=== PATIENT | male | born 1995 | race Hispanic/Latino ===

== ENCOUNTER 2022-09-07 00:37 | Inpatient (IN) | payer OTHER ==
[~2022-09-07] VITALS: Ht 167.6 cm; Wt 61.0 kg
[2022-09-07] VITALS (7 sets, daily range): BP systolic 127–143; BP diastolic 66–81; PULSE 80–95; RESP 17–20; TEMP 97.8–98.6; O2SAT 89–100
[2022-09-07] MEDS ORDERED: ALBUTEROL/IPRATROPIUM 3 ML NEB NEB STA (00:41)
[2022-09-07] MEDS ORDERED: METHYLPREDNISOLONE SOD SUCC 125 MG/2ML VIAL IV STA (00:41)
[2022-09-07] MEDS ORDERED: PREDNISONE 20 MG TAB PO STA (00:48)
[2022-09-07 00:54] LABS: BASOPHILS % 0.1 % (0.0-1.0); EOSINOPHILS % 0.2 % (0.0-6.0); HEMATOCRIT 41.8 % (38.2-49.6); HEMOGLOBIN 15.2 g/dL (14.0-18.0); LYMPHOCYTES # (AUTO) 2.4 (1.0-3.2); LYMPHOCYTES % 24.4 % (18.0-39.1); MEAN CORPUSCULAR HEMOGLOBIN 30.6 pg (28-32); MEAN CORPUSCULAR HGB CONC 36.4 g/dL (31-35); MEAN CORPUSCULAR VOLUME 84.3 fL (81-99); MONOCYTES # (AUTO) 0.6 (0.2-0.8); MONOCYTES % 6.1 % (4.4-11.3); NEUTROPHILS # (AUTO) 6.8 (2.1-6.9); PLATELET COUNT 239 x10e3/uL (140-360); RED BLOOD COUNT 4.96 x10e6/uL (4.3-5.7); RED CELL DISTRIBUTION WIDTH 11.8 % (11.7-14.4)
[2022-09-07 01:16] LABS: ALANINE AMINOTRANSFERASE 63 IU/L (0-55); ALBUMIN 4.3 g/dL (3.5-5.0); ALBUMIN/GLOBULIN RATIO 1.1 (0.8-2.0); ALKALINE PHOSPHATASE 67 IU/L (40-150); ANION GAP 18.7 mmol/L (8-16); BLOOD UREA NITROGEN 13 mg/dL (7-26); BUN/CREATININE RATIO 13 (6-25); CALCIUM 9.5 mg/dL (8.4-10.2); CARBON DIOXIDE 19 mmol/L (22-29); CHLORIDE 104 mmol/L (98-107); CREATINE KINASE 164 IU/L (30-200); CREATININE, SERUM 0.99 mg/dL (0.72-1.25); GLUCOSE 110 mg/dL (74-118); POTASSIUM 3.7 mmol/L (3.5-5.1); SODIUM 138 mmol/L (136-145)
[2022-09-07 01:25] LABS: ABG PCO2 22 mmHg (35-45); ABG PH 7.58 (7.35-7.45); ABG PO2 46 mmHg (80-105)
[2022-09-07 01:26] LABS: ABG HCO3 20 mmol/L (22-26); ABG TCO2 21
[2022-09-07] MEDS ORDERED: IOPAMIDOL 370 MG/ML 100 ML INFUS..BTL INJ ONE (02:26)
[2022-09-07] MEDS: SODIUM CHLORIDE 0.9% 1000ML 1,000 ML IV SCH ×3 (02:27→17:38)
[2022-09-07 02:59] LABS: ABG PCO2 35 mmHg (35-45); ABG PH 7.44 (7.35-7.45); ABG PO2 169 mmHg (80-105)
[2022-09-07 03:00] LABS: ABG HCO3 24 mmol/L (22-26); ABG TCO2 25
[2022-09-07] MEDS ORDERED: DOCUSATE SODIUM 100 MG CAP PO PRN (05:00)
[2022-09-07] MEDS ORDERED: ALBUTEROL SULF 0.083% NEB SOLN 3 ML NEB NEB PRN (05:00)
[2022-09-07] MEDS ORDERED: ACETAMINOPHEN 325 MG TAB PO PRN (05:00)
[2022-09-07] MEDS ORDERED: GUAIFENESIN/DEXTROMETHORPHAN LIQD 5 ML UDC PO PRN (05:00)
[2022-09-07] MEDS ORDERED: MAGNESIUM/ALUMINUM/SIMETHICONE 30 ML UDC PO PRN (05:00)
[2022-09-07] MEDS ORDERED: MELATONIN 3 MG TAB PO PRN (05:00)
[2022-09-07] MEDS ORDERED: ONDANSETRON HCL INJ 2MG/ML 2ML 2 MG/ML VIAL IV PRN (05:00)
[2022-09-07] MEDS ORDERED: HYDRALAZINE HCL 20 MG/ML VIAL IV PRN (05:00)
[2022-09-07 07:55] LABS: AMPHETAMINES SCREEN,URINE NEGATIVE (NEGATIVE); BENZODIAZEPINES SCREEN,URINE NEGATIVE (NEGATIVE); PHENCYCLIDINE SCREEN,URINE NEGATIVE (NEGATIVE)
[2022-09-07 10:19] LABS: CREATINE KINASE 139 IU/L (30-200)
[2022-09-07 10:41] LABS: MAGNESIUM 1.7 MG/DL (1.3-2.1)
[2022-09-07] MEDS: MULTIVITAMINS/MINERALS TAB PO SCH (10:54)
[2022-09-07 11:34] LABS: FREE THYROXINE INDEX 1.9094 (1.4-3.8); THYROID STIMULATING HORMONE 0.263 uIU/mL (0.350-4.940)
[2022-09-07 19:45] LABS: CREATINE KINASE 134 IU/L (30-200)
[2022-09-08] VITALS (9 sets, daily range): BP systolic 108–133; BP diastolic 61–85; PULSE 64–81; RESP 16–20; TEMP 97.5–98.2; O2SAT 100
[2022-09-08] MEDS: SODIUM CHLORIDE 0.9% 1000ML 1,000 ML IV SCH ×3 (05:07→21:21)
[2022-09-08 06:13] LABS: BASOPHILS % 0.1 % (0.0-1.0); EOSINOPHILS % 0.2 % (0.0-6.0); HEMATOCRIT 38.1 % (38.2-49.6); HEMOGLOBIN 13.3 g/dL (14.0-18.0); LYMPHOCYTES # (AUTO) 3.1 (1.0-3.2); MEAN CORPUSCULAR HEMOGLOBIN 30.7 pg (28-32); MEAN CORPUSCULAR HGB CONC 34.9 g/dL (31-35); MONOCYTES # (AUTO) 0.7 (0.2-0.8); MONOCYTES % 6.4 % (4.4-11.3); NEUTROPHILS # (AUTO) 7.2 (2.1-6.9); NEUTROPHILS % 64.9 % (38.7-80.0); PLATELET COUNT 205 x10e3/uL (140-360); RED BLOOD COUNT 4.33 x10e6/uL (4.3-5.7); RED CELL DISTRIBUTION WIDTH 12.4 % (11.7-14.4)
[2022-09-08 06:35] LABS: ALBUMIN 3.4 g/dL (3.5-5.0); ALBUMIN/GLOBULIN RATIO 1.1 (0.8-2.0); CALCIUM 8.4 mg/dL (8.4-10.2); CREATININE, SERUM 0.84 mg/dL (0.72-1.25)
[2022-09-08] MEDS: MULTIVITAMINS/MINERALS TAB PO SCH (09:55)
[2022-09-08] MEDS ORDERED: ONDANSETRON HCL 4 MG ORAL DISINTEGRATING TAB PO PRN (13:45)
[2022-09-09] VITALS: BP 125/66; PULSE 78; RESP 18; TEMP 98.2; O2SAT 100
[2022-09-09] MEDS: SODIUM CHLORIDE 0.9% 1000ML 1,000 ML IV SCH ×2 (01:30→05:29)
[2022-09-09 04:00] VITALS: BP 112/72; PULSE 69; RESP 18; TEMP 98.1; O2SAT 99
[2022-09-09 06:32] VITALS: PULSE 75; RESP 20; O2SAT 97
[2022-09-09] MEDS ORDERED: PROVENTIL HFA6.7 GM INH (07:39)
[2022-09-09 07:59] VITALS: BP 119/69; PULSE 73; RESP 19; TEMP 98.4; O2SAT 100
[2022-09-09 08:35] VITALS: BP 119/69; PULSE 73; RESP 19; TEMP 98.4; O2SAT 100
== END 2022-09-09 11:37 | disposition home or self-care (01) | DRG 189 ==
LOC: ER 00:41 → ERHOLD 02:02 → INTOOBSV 02:02 → MED/SURG3 12:51 → OBSVTOIN 09-08 16:26
PROVIDERS: ADMIT Internal Medicine; ATTEND Internal Medicine
DX: J96.01 Acute respiratory failure with hypoxia (principal); E87.3 Alkalosis; Z77.098 Contact with and (suspected) exposure to other hazardous, chiefly nonmedicinal, chemicals; R20.2 Paresthesia of skin; I45.10 Unspecified right bundle-branch block; F12.90 Cannabis use, unspecified, uncomplicated; R53.83 Other fatigue; R94.5 Abnormal results of liver function studies; Z20.822 Contact with and (suspected) exposure to COVID-19; Z87.891 Personal history of nicotine dependence
CPT/HCPCS: 36415; 36600; 71045; 71260; 80053; 80307; 82375; 82550; 82805; 83690; 83735; 83880; 84100; 84436; 84443; 84479; 84484; 85025; 85379; 86140; 93005; 93306; 94799; 96361; 99285; G0378; J2930; J7030; J7512; Q9967